=== PATIENT | female | born 1990 | race Caucasian/White ===

== ENCOUNTER 2017-08-12 03:53 | Emergency (ER) | payer SELFPAY ==
[~2017-08-12] VITALS: Ht 172.7 cm; Wt 81.0 kg
[~2017-08-12 03:53] MED LIST: ALEVE220 MG OR
[2017-08-12] MEDS ORDERED: AMOXICILLIN500 MG PO (04:22)
[2017-08-12 04:29] LABS: INFLUENZA A NONE DETECTED (NONE DETECT); INFLUENZA B NONE DETECTED (NONE DETECT)
[2017-08-12 04:55] VITALS: BP 132/90
== END 2017-08-12 05:00 | disposition home or self-care (01) | DRG 153 ==
LOC: ED 03:53
PROVIDERS: Emergency Medicine
DX: J02.0 Streptococcal pharyngitis (principal); H66.93 Otitis media, unspecified, bilateral; F17.200 Nicotine dependence, unspecified, uncomplicated; J45.909 Unspecified asthma, uncomplicated; F41.9 Anxiety disorder, unspecified